=== PATIENT | female | born 1975 | race Caucasian/White ===

== ENCOUNTER → 2016-07-28 | Outpatient (CLI) | payer OTHER ==
--- NOTE | 2016-07-29 08:59 | REP ---
Duplex extremity venous ultrasound right lower extremity: Reflux evaluation. History: Varicose veins. Question reflux. Findings: The deep veins are anechoic and fully compressible from the groin to the popliteal fossa in the right lower extremity on two-dimensional scanning. Color flow imaging is homogeneous. Spectral Doppler interrogation shows no evidence of deep vein thrombosis. Reflux findings: An anterior accessory greater saphenous vein is present but no reflux is seen. Reflux was not observed in this patient's superficial venous system. The greater saphenous vein measures 6.1 mm in AP dimension at the saphenofemoral junction, 4.4 mm in AP dimension at midthigh, and 4.0 mm in AP dimension at the knee. The lesser saphenous vein measures 3.5 mm in AP dimension. It showed minimal reflux. Minimal reflux was also observed in the common femoral vein, the popliteal vein. Impression: No evidence of DVT. Minimal reflux. Signed by Isaak Garcia MD 07/29/2016 09:23 A
== END ==
LOC: M RAD 12:30
PROVIDERS: ATTEND Internal Medicine
DX: I83.93 Asymptomatic varicose veins of bilateral lower extremities (principal)

== ENCOUNTER → 2016-07-29 | Outpatient (CLI) | payer OTHER ==
--- NOTE | 2016-07-29 12:05 | REP ---
DUPLEX EXTREMITY VENOUS ULTRASOUND: Left lower extremity. HISTORY: Evaluate for reflux. FINDINGS: The deep veins are anechoic and fully compressible from the groin to the popliteal fossa in the left lower extremity. Color flow imaging is homogeneous. Spectral Doppler interrogation demonstrates intact respiratory variation in flow and normal manual augmentation of flow. There is no evidence of deep vein thrombosis. IMPRESSION: Negative left lower extremity duplex venous ultrasound. No evidence of deep vein thrombosis. REFLUX FINDINGS: No reflux was observed in either the superficial or the deep system. An anterior accessory greater saphenous vein is present but without reflux. The greater saphenous vein measures 6.9 mm in AP dimension at the saphenofemoral junction, 3.9 mm in AP dimension at midthigh, and 3.6 mm in AP dimension at the knee. The lesser saphenous vein measures 3.7 mm in AP dimension. No reflux was observed. IMPRESSION: No reflux seen. Signed by Isaak Garcia MD 07/29/2016 02:59 P
== END ==
LOC: M RAD 10:04
PROVIDERS: ATTEND Internal Medicine
DX: I83.93 Asymptomatic varicose veins of bilateral lower extremities (principal)

== ENCOUNTER 2024-02-09 08:03 | Day surgery (SDC) | payer OTHER ==
[~2024-02-09] VITALS: Ht 160 cm; Wt 70.1 kg
[~2024-02-09 08:03] MED LIST: D 50CAP2 PO; FERR325T19 PO; OMEP-173 PO; THERTAB52 PO; VITA500T9 PO
[2024-02-09] MEDS: NS 1,000 ML IV ONE (09:34)
[2024-02-09] MEDS ORDERED: GLYCOPYRROLATE INJ 0.2 MG/ML 2 ML VIAL As Ordered ONE (09:48)
[2024-02-09] MEDS ORDERED: fentaNYL 100 MCG/2 ML INJECTION As Ordered ONE (09:50)
[2024-02-09] MEDS ORDERED: propofoL 200 MG/20 ML VIAL As Ordered ONE (10:13)
[2024-02-09] MEDS ORDERED: LIDOCAINE 2% 100MG/5ML SDV (FOR ANES.) As Ordered ONE (10:13)
[2024-02-09] MEDS ORDERED: ePHEDrine SULFATE 25 MG/5 ML(5MG/ML) SYRINGE As Ordered ONE (10:25)
[2024-02-09 10:32] VITALS: TEMP 97.7
[2024-02-09 10:48] VITALS: BP 128/70; O2SAT 99
== END 2024-02-09 10:57 | disposition home or self-care (01) ==
LOC: M OPP 08:03
PROVIDERS: ATTEND Internal Medicine Gastroenterology
DX: Z12.11 Encounter for screening for malignant neoplasm of colon (principal); K64.8 Other hemorrhoids; K22.89 Other specified disease of esophagus; R13.10 Dysphagia, unspecified; Z87.891 Personal history of nicotine dependence
CPT/HCPCS: 43239; 45378; 88305; J1596; J3010